=== PATIENT | female | born 1945 | race Caucasian/White ===

== ENCOUNTER 2018-05-14 23:08 | Inpatient (IN) | payer MEDICARE, OTHER ==
[~2018-05-14] VITALS: Ht 167.6 cm; Wt 67.0 kg
[2018-05-14] MEDS ORDERED: RAPID SEQUENCE KIT [RSI] 1 EACH KIT ONE (23:18)
[2018-05-14] MEDS ORDERED: VECURONIUM BROMIDE 10 MG/VIAL ONE (23:18)
[2018-05-14] MEDS ORDERED: SUCCINYLCHOLINE CHLORIDE 20 MG/ML 10 ML VIAL ONE (23:18)
[2018-05-14] MEDS ORDERED: ETOMIDATE 2 MG/ML 10 ML VIAL ONE (23:22)
[2018-05-14 23:23] LABS: GLUCOSE,POINT OF CARE 241 MG/DL (70-110)
[2018-05-14] MEDS ORDERED: PROPOFOL 1000 MG/ISO-OSM 100 ML IV ONE (23:23)
[2018-05-14 23:28] LABS: BASOPHILS % (AUTO) 1.5 % (0.0-2.0); EOSINOPHILS % (AUTO) 1.2 % (1.0-6.0); HEMATOCRIT 34.8 % (36-46); HEMOGLOBIN 11.1 g/dL (12.0-16.0); LYMPHOCYTES # (AUTO) 3.5 K/uL (1.0-4.8); LYMPHOCYTES % (AUTO) 21.2 % (22.0-44.0); MEAN CORPUSCULAR HEMOGLOBIN 28.9 pg (26.0-34.0); MEAN CORPUSCULAR HGB CONC 31.9 G/dL (31.0-37.0); MEAN CORPUSCULAR VOLUME 91 fL (80-100); MONOCYTES # (AUTO) 1.7 K/uL (0.1-1.0); NEUTROPHILS # (AUTO) 11.1 K/uL (1.8-7.7); NEUTROPHILS % (AUTO) 66.1 % (40.0-70.0); PLATELET COUNT (AUTO) 200 K/uL (150-450); RED BLOOD CELL COUNT(AUTO) 3.83 MIL/uL (4.00-5.20); RED CELL DISTRIBUTION WIDTH 14.9 % (11.5-14.5)
[2018-05-14] MEDS ORDERED: ALBUTEROL SULFATE 2.5 MG/0.5 ML NEB SOLUTION NEB ONE (23:30)
[2018-05-14] MEDS ORDERED: VECURONIUM BROMIDE 10 MG/VIAL IVP ONE (23:30)
[2018-05-14] MEDS ORDERED: FUROSEMIDE 40 MG/4 ML VIAL IVP ONE (23:30)
[2018-05-14] MEDS ORDERED: ETOMIDATE 2 MG/ML 10 ML VIAL IVP ONE (23:30)
[2018-05-14] MEDS ORDERED: CefTRIAXone 1 GM/DEXTROSE 50 ML IV ONE (23:30)
[2018-05-14] MEDS ORDERED: SUCCINYLCHOLINE CHLORIDE 20 MG/ML 10 ML VIAL IVP ONE (23:30)
[2018-05-14] MEDS ORDERED: MethylPREDNISolone SOD SUCC 125 MG/2 ML VIAL IVP ONE (23:30)
[2018-05-14] MEDS ORDERED: IPRATROPIUM BROMIDE 0.5 MG/2.5 ML NEB SOLUTION NEB ONE (23:30)
[2018-05-14] MEDS ORDERED: PROPOFOL 1000 MG/ISO-OSM 100 ML IV PRN (23:30)
[2018-05-14] MEDS ORDERED: PIPERACILLIN SODIUM/TAZOBACTAM 4.5 GM in DEXTROSE 5%-WATER 100 ML IV ONE (23:45)
[2018-05-14] MEDS ORDERED: ONDANSETRON HCL 4 MG/2 ML VIAL IVP PRN (23:45)
[2018-05-14] MEDS ORDERED: ACETAMINOPHEN 325 MG TABLET PO PRN (23:45)
[2018-05-14] MEDS ORDERED: 0.9% SODIUM CHLORIDE 10 ML SYRINGE IVP PRN (23:45)
[2018-05-14 23:46] LABS: ANION GAP 10 mmol/L (8-16); CALCIUM, TOTAL 9.1 mg/dL (8.8-10.5); CARBON DIOXIDE 25 mmol/L (22-29); CHLORIDE 103 mmol/L (98-107); CREATININE 1.39 mg/dL (0.60-1.30); GLOMERULAR FILTR. RATE CALC 37 mL/min (>60); GLUCOSE,RANDOM 251 mg/dL (70-110); INR 1.1 (0.9-1.1); POTASSIUM 4.7 mmol/L (3.5-5.1); PROTHROMBIN TIME 11.1 SEC (9.4-11.6); SODIUM SERUM 138 mmol/L (136-145); UREA NITROGEN, BLOOD 9 mg/dL (7-18)
[2018-05-14 23:50] LABS: B-TYPE NATRIURETIC PEPTIDE > 5000 pg/mL (0-100)
[2018-05-14 23:57] LABS: ALANINE AMINOTRANSFERASE 55 U/L (12-78); ALBUMIN 2.7 g/dL (3.4-5.0); ALKALINE PHOSPHATASE 117 U/L (46-116); ASPARTATE AMINOTRANSFERASE 37 U/L (15-37); BILIRUBIN,TOTAL 0.4 mg/dL (0.1-1.0); CREATINE KINASE, TOTAL ONLY 29 U/L (26-192); TOTAL PROTEIN, SERUM 7.1 g/dL (6.4-8.2)
[2018-05-15] VITALS (10 sets, daily range): BP systolic 111–147; BP diastolic 46–87
[2018-05-15] MEDS ORDERED: MULT-248 PO (00:10)
[2018-05-15] MEDS ORDERED: LEVO50 PO (00:10)
[2018-05-15] MEDS ORDERED: [UNRECOGNIZED DRUG - OTHER] PO (00:10)
[2018-05-15] MEDS ORDERED: BUSP15 PO (00:10)
[2018-05-15] MEDS ORDERED: LEVA0.634 NEB (00:10)
[2018-05-15] MEDS ORDERED: IVAB5TAB PO (00:10)
[2018-05-15] MEDS ORDERED: ROFL500T PO (00:10)
[2018-05-15] MEDS ORDERED: INSNOV SQ (00:10)
[2018-05-15] MEDS ORDERED: THIA100T67 PO (00:10)
[2018-05-15] MEDS ORDERED: ENOX40DI9 SQ (00:10)
[2018-05-15] MEDS ORDERED: METO50 PO (00:10)
[2018-05-15] MEDS ORDERED: IPRNEB IH (00:10)
[2018-05-15] MEDS ORDERED: ZOLP10TA7 PO (00:10)
[2018-05-15] MEDS ORDERED: IPRA4AER IH (00:10)
[2018-05-15] MEDS ORDERED: MIRT30 PO (00:10)
[2018-05-15] MEDS ORDERED: DIGO-44 PO (00:10)
[2018-05-15] MEDS ORDERED: ATOR40TA28 PO (00:10)
[2018-05-15] MEDS ORDERED: ADV250 IH (00:10)
[2018-05-15] MEDS ORDERED: ALPR0.255 PO (00:10)
[2018-05-15] MEDS ORDERED: ALEN70TA10 PO (00:10)
[2018-05-15] MEDS ORDERED: SPIR25 PO (00:10)
[2018-05-15] MEDS ORDERED: LISI-660 PO (00:10)
[2018-05-15] MEDS ORDERED: INSU100V12 SQ (00:10)
[2018-05-15] MEDS ORDERED: BUME1TAB17 PO (00:10)
[2018-05-15] MEDS ORDERED: PANT40TA25 PO (00:10)
[2018-05-15] MEDS ORDERED: ASPI81 PO (00:10)
[2018-05-15] MEDS ORDERED: FAMO20 PO (00:10)
[2018-05-15 00:14] LABS: ABG BASE EXCESS 1.3 mmol/L (-2.0-3.0); ABG CARBOXYHEMOGLOBIN 0.3 % (0.0-1.5); ABG HCO3 24.8 mmol/L (22.0-26.0); ABG OXYGEN CONTENT 15.6 mL/dL (15.0-23.0); ABG OXYGEN SATURATION 94.8 % (95.0-98.0); ABG OXYHEMOGLOBIN 94.5 % (94.0-100.0); ABG PCO2 59 mmHg (35-45); ABG PH 7.291 (7.35-7.450); ABG TOTAL HEMOGLOBIN 11.7 G/dL (12.0-18.0); O2 DEVICE,BLOOD GAS VENTILATOR (ROOM AIR); PEEP,BG 5 cm H2O; PO2, ARTERIAL BG 93.9 mmHg (75.0-83.0); SITE, BLOOD GAS LFT RADIAL; SOURCE, BLOOD GAS ARTERIAL; VT, ABG 500 ml
[2018-05-15] MEDS ORDERED: ACETAMINOPHEN 325 MG TABLET PO PRN (00:15)
[2018-05-15] MEDS ORDERED: MAGNESIUM SULFATE 2 GM/WATER 50 ML IV PRN (00:15)
[2018-05-15] MEDS ORDERED: ALBUTEROL SULFATE 2.5 MG/0.5 ML NEB SOLUTION NEB PRN (00:15)
[2018-05-15] MEDS ORDERED: POTASSIUM CHL 10 MEQ/WATER 50 ML IV PRN (00:15)
[2018-05-15] MEDS ORDERED: MAGNESIUM OXIDE 400 MG TABLET PO PRN (00:15)
[2018-05-15] MEDS ORDERED: ONDANSETRON HCL 4 MG/2 ML VIAL IVP PRN (00:15)
[2018-05-15] MEDS ORDERED: IPRATROPIUM BROMIDE 0.5 MG/2.5 ML NEB SOLUTION NEB PRN (00:15)
[2018-05-15] MEDS ORDERED: POTASSIUM CHLORIDE 20 MEQ ER TABLET PO PRN (00:15)
[2018-05-15] MEDS ORDERED: BISACODYL 10 MG RECTAL RECTAL SUPPOSITORY PR PRN (00:15)
[2018-05-15] MEDS ORDERED: MAGNESIUM SULFATE 4 GM/WATER 100 ML IV PRN (00:15)
[2018-05-15] MEDS ORDERED: MAGNESIUM HYDROXIDE SUSPENSION 30 ML UDCUP PO PRN (00:15)
[2018-05-15] MEDS ORDERED: OxyCODONE HCL/ACETAMINOPHEN 5-325 MG TABLET PO PRN (00:15)
[2018-05-15 00:20] LABS: LACTIC ACID 3.2 mmol/L (0.4-2.0)
[2018-05-15] MEDS ORDERED: SODIUM CHLORIDE 0.9% 1,200 ML IV ONE (00:30)
[2018-05-15] MEDS ORDERED: SODIUM CHLORIDE 0.9% 250 ML IV ONE (01:24)
[2018-05-15 05:02] LABS: BASOPHILS % (AUTO) 0.1 % (0.0-2.0); EOSINOPHILS % (AUTO) 0.1 % (1.0-6.0); HEMATOCRIT 32.9 % (36-46); HEMOGLOBIN 10.5 g/dL (12.0-16.0); LYMPHOCYTES # (AUTO) 0.3 K/uL (1.0-4.8); LYMPHOCYTES % (AUTO) 1.7 % (22.0-44.0); MEAN CORPUSCULAR HEMOGLOBIN 29.2 pg (26.0-34.0); MEAN CORPUSCULAR VOLUME 91 fL (80-100); MONOCYTES # (AUTO) 0.7 K/uL (0.1-1.0); MONOCYTES % (AUTO) 4.3 % (2.0-9.0); NEUTROPHILS # (AUTO) 14.2 K/uL (1.8-7.7); PLATELET COUNT (AUTO) 149 K/uL (150-450); RED BLOOD CELL COUNT(AUTO) 3.61 MIL/uL (4.00-5.20); RED CELL DISTRIBUTION WIDTH 14.7 % (11.5-14.5)
[2018-05-15 05:04] LABS: NEUTROPHILS % (AUTO) 93.8 % (40.0-70.0)
[2018-05-15 05:14] LABS: HEMOGLOBIN A1C 7.2 % (4.5-6.2)
[2018-05-15 05:16] LABS: ALBUMIN 2.6 g/dL (3.4-5.0); BILIRUBIN,TOTAL 0.5 mg/dL (0.1-1.0); CALCIUM, TOTAL 8.7 mg/dL (8.8-10.5); CREATININE 1.18 mg/dL (0.60-1.30); MAGNESIUM 1.8 mg/dL (1.80-2.40); PHOSPHORUS 4.4 mg/dL (2.5-4.9); POTASSIUM 3.9 mmol/L (3.5-5.1); TOTAL PROTEIN, SERUM 6.6 g/dL (6.4-8.2)
[2018-05-15] MEDS: LEVOTHYROXINE SODIUM 50 MCG TABLET PO SCH (05:48)
[2018-05-15] MEDS: PIPERACILLIN SODIUM/TAZOBACTAM 4.5 GM in DEXTROSE 5%-WATER 100 ML IV SCH ×4 (06:09→23:44)
[2018-05-15] MEDS: METOPROLOL TARTRATE 50 MG TABLET PO SCH ×4 (09:00→21:00)
[2018-05-15] MEDS: SPIRONOLACTONE 25 MG TABLET PO SCH ×2 (09:00→09:21)
[2018-05-15] MEDS: LISINOPRIL 5 MG TABLET PO SCH ×2 (09:00→09:21)
[2018-05-15] MEDS: DIGOXIN 125 MCG TABLET PO SCH ×2 (09:00→09:21)
[2018-05-15] MEDS: PANTOPRAZOLE SODIUM 40 MG/VIAL IVP SCH (09:20)
[2018-05-15] MEDS: ROFLUMILAST 500 MCG TABLET PO SCH (09:21)
[2018-05-15] MEDS: BusPIRone HCL 15 MG TABLET PO SCH ×2 (09:21→21:05)
[2018-05-15] MEDS: HEPARIN SODIUM,PORCINE 5,000 UNITS/ML VIAL SQ SCH ×3 (09:21→23:44)
[2018-05-15] MEDS: FUROSEMIDE 40 MG/4 ML VIAL IVP SCH (09:33)
[2018-05-15] MEDS: PROPOFOL 1000 MG/ISO-OSM 100 ML IV PRN ×3 (09:41→23:44)
[2018-05-15 10:27] LABS: ABG BASE EXCESS 5.1 mmol/L (-2.0-3.0); ABG CARBOXYHEMOGLOBIN 0.3 % (0.0-1.5); ABG HCO3 28.6 mmol/L (22.0-26.0); ABG METHEMOGLOBIN 0.3 % (0.0-1.5); ABG OXYGEN CONTENT 16.3 mL/dL (15.0-23.0); ABG OXYGEN SATURATION 98.4 % (95.0-98.0); ABG OXYHEMOGLOBIN 97.8 % (94.0-100.0); ABG PCO2 44 mmHg (35-45); ABG PH 7.444 (7.35-7.450); ABG TOTAL HEMOGLOBIN 11.7 G/dL (12.0-18.0); PO2, ARTERIAL BG 131.2 mmHg (75.0-83.0); SOURCE, BLOOD GAS ARTERIAL; TEMPERATURE, FAHRENHEIT, BG 98.9 FAHREN (96.0-98.6)
[2018-05-15 10:33] LABS: O2 DEVICE,BLOOD GAS VENTILATOR (ROOM AIR); PEEP,BG 5 cm H2O; SITE, BLOOD GAS LFT RADIAL; SPONTANEOUS VT, BG 467 ml; VT, ABG 500 ml
[2018-05-15] MEDS ORDERED: ETOMIDATE 2 MG/ML 10 ML VIAL IV ONE (16:44)
[2018-05-15] MEDS ORDERED: SUCCINYLCHOLINE CHLORIDE 20 MG/ML 10 ML VIAL IM ONE (16:44)
[2018-05-15] MEDS ORDERED: INSULIN DETEMIR 100 UNITS/ML SQ SCH (21:00)
[2018-05-15] MEDS: MIRTAZAPINE 30 MG TABLET PO SCH (21:05)
[2018-05-15 21:16] LABS: GLUCOSE,POINT OF CARE 163 MG/DL (70-110)
[2018-05-15] MEDS: MORPHINE SULFATE 2 MG/ML SYRINGE IVP PRN (22:51)
[2018-05-16] VITALS (10 sets, daily range): BP systolic 91–141; BP diastolic 35–79
[2018-05-16] MEDS: MORPHINE SULFATE 2 MG/ML SYRINGE IVP PRN ×3 (04:51→20:24)
[2018-05-16 05:04] LABS: GLUCOSE,POINT OF CARE 197 MG/DL (70-110)
[2018-05-16 05:12] LABS: BASOPHILS % (AUTO) 0.3 % (0.0-2.0); EOSINOPHILS % (AUTO) 0.2 % (1.0-6.0); LYMPHOCYTES # (AUTO) 0.8 K/uL (1.0-4.8); LYMPHOCYTES % (AUTO) 10.4 % (22.0-44.0); MEAN CORPUSCULAR HGB CONC 32.2 G/dL (31.0-37.0); MEAN CORPUSCULAR VOLUME 90 fL (80-100); MONOCYTES # (AUTO) 0.8 K/uL (0.1-1.0); MONOCYTES % (AUTO) 10.4 % (2.0-9.0); NEUTROPHILS # (AUTO) 5.8 K/uL (1.8-7.7); NEUTROPHILS % (AUTO) 78.7 % (40.0-70.0); PLATELET COUNT (AUTO) 154 K/uL (150-450); RED BLOOD CELL COUNT(AUTO) 3.45 MIL/uL (4.00-5.20); RED CELL DISTRIBUTION WIDTH 14.9 % (11.5-14.5)
[2018-05-16] MEDS ORDERED: SODIUM CHLORIDE 0.9% 250 ML IV ONE (05:15)
[2018-05-16] MEDS: PIPERACILLIN SODIUM/TAZOBACTAM 4.5 GM in DEXTROSE 5%-WATER 100 ML IV SCH (05:15)
[2018-05-16] MEDS: LEVOTHYROXINE SODIUM 50 MCG TABLET PO SCH (05:15)
[2018-05-16 05:17] LABS: ALBUMIN 2.2 g/dL (3.4-5.0); BILIRUBIN,TOTAL 0.4 mg/dL (0.1-1.0); CALCIUM, TOTAL 8.4 mg/dL (8.8-10.5); CREATININE 1.28 mg/dL (0.60-1.30); MAGNESIUM 1.7 mg/dL (1.80-2.40); PHOSPHORUS 5.1 mg/dL (2.5-4.9); POTASSIUM 3.7 mmol/L (3.5-5.1)
[2018-05-16 05:18] LABS: HEMOGLOBIN A1C 7.1 % (4.5-6.2)
[2018-05-16] MEDS: PROPOFOL 1000 MG/ISO-OSM 100 ML IV PRN ×2 (07:31→13:34)
[2018-05-16] MEDS: METOPROLOL TARTRATE 50 MG TABLET PO SCH ×3 (08:07→20:24)
[2018-05-16] MEDS: LISINOPRIL 5 MG TABLET PO SCH (08:07)
[2018-05-16] MEDS: BusPIRone HCL 15 MG TABLET PO SCH ×2 (08:18→20:24)
[2018-05-16] MEDS: DIGOXIN 125 MCG TABLET PO SCH (08:18)
[2018-05-16] MEDS: HEPARIN SODIUM,PORCINE 5,000 UNITS/ML VIAL SQ SCH ×3 (08:18→23:26)
[2018-05-16] MEDS: SPIRONOLACTONE 25 MG TABLET PO SCH (08:18)
[2018-05-16] MEDS: PANTOPRAZOLE SODIUM 40 MG/VIAL IVP SCH (08:18)
[2018-05-16] MEDS: ROFLUMILAST 500 MCG TABLET PO SCH (08:19)
[2018-05-16] MEDS: FUROSEMIDE 40 MG/4 ML VIAL IVP SCH (08:19)
[2018-05-16] MEDS: PIPERACILLIN/TAZO 3.375 GM/D5W 50 ML IV SCH ×3 (11:36→23:25)
[2018-05-16] MEDS ORDERED: DEXTROSE 50%-WATER 25 GM/50 ML SYRINGE IVP PRN (11:45)
[2018-05-16] MEDS: INSULIN REGULAR, HUMAN 100 UNITS/ML SQ PRN (11:58)
[2018-05-16] MEDS: HALOPERIDOL LACTATE 5 MG/ML VIAL IVP PRN (15:08)
[2018-05-16 17:14] LABS: ABG A-A DIFF O2 131.5 mmHg (10-20.0); ABG BASE EXCESS 7.4 mmol/L (-2.0-3.0); ABG CARBOXYHEMOGLOBIN 0.3 % (0.0-1.5); ABG HCO3 30.5 mmol/L (22.0-26.0); ABG METHEMOGLOBIN 0.3 % (0.0-1.5); ABG OXYGEN CONTENT 16.4 mL/dL (15.0-23.0); ABG OXYGEN SATURATION 97.6 % (95.0-98.0); ABG PCO2 44 mmHg (35-45); ABG PH 7.467 (7.35-7.450); ABG TOTAL HEMOGLOBIN 11.9 G/dL (12.0-18.0); SOURCE, BLOOD GAS ARTERIAL; TEMPERATURE, FAHRENHEIT, BG 98.6 FAHREN (96.0-98.6)
[2018-05-16 17:15] LABS: O2 DEVICE,BLOOD GAS VENTILATOR (ROOM AIR); PEEP,BG 0 cm H2O; SITE, BLOOD GAS RT RADIAL; VENT MODE, BG SPONTANEOUS (ROOM AIR)
[2018-05-16 17:16] LABS: CPAP, BG 0 cm H2O; PRESSURE SUPPORT, BG 8 cm H2O; SPONTANEOUS VT, BG 428 ml
[2018-05-16] MEDS: MethylPREDNISolone SOD SUCC 125 MG/2 ML VIAL IVP SCH ×2 (17:41→23:26)
[2018-05-16] MEDS: IPRATROPIUM BROMIDE 0.5 MG/2.5 ML NEB SOLUTION NEB SCH ×2 (19:36→22:31)
[2018-05-16] MEDS: ALBUTEROL SULFATE 2.5 MG/0.5 ML NEB SOLUTION NEB SCH ×2 (19:36→22:31)
[2018-05-16] MEDS: MIRTAZAPINE 30 MG TABLET PO SCH (20:24)
[2018-05-16 20:48] LABS: GLUCOSE,POINT OF CARE 137 MG/DL (70-110)
[2018-05-16 20:48] LABS: GLUCOSE,POINT OF CARE 205 MG/DL (70-110)
[2018-05-16] MEDS: ZOLPIDEM TARTRATE 5 MG TABLET PO PRN (21:27)
[2018-05-16 21:44] LABS: ABG A-A DIFF O2 77.3 mmHg (10-20.0); ABG BASE EXCESS 6.5 mmol/L (-2.0-3.0); ABG CARBOXYHEMOGLOBIN 0.3 % (0.0-1.5); ABG HCO3 29.5 mmol/L (22.0-26.0); ABG METHEMOGLOBIN 0.3 % (0.0-1.5); ABG OXYGEN CONTENT 16.1 mL/dL (15.0-23.0); ABG OXYGEN SATURATION 95.6 % (95.0-98.0); ABG PCO2 47 mmHg (35-45); ABG PH 7.434 (7.35-7.450); O2 DEVICE,BLOOD GAS BIPAP (ROOM AIR); PO2, ARTERIAL BG 81.5 mmHg (75.0-83.0); SITE, BLOOD GAS LFT RADIAL; SOURCE, BLOOD GAS ARTERIAL; TEMPERATURE, FAHRENHEIT, BG 98.6 FAHREN (96.0-98.6)
[2018-05-17] VITALS: BP 113/32
[2018-05-17] MEDS: INSULIN REGULAR, HUMAN 100 UNITS/ML SQ PRN ×4 (00:21→17:42)
[2018-05-17 02:34] LABS: GLUCOSE,POINT OF CARE 186 MG/DL (70-110)
[2018-05-17] MEDS: IPRATROPIUM BROMIDE 0.5 MG/2.5 ML NEB SOLUTION NEB SCH ×6 (03:07→22:55)
[2018-05-17] MEDS: ALBUTEROL SULFATE 2.5 MG/0.5 ML NEB SOLUTION NEB SCH ×6 (03:07→22:55)
[2018-05-17 04:00] VITALS: BP 133/57
[2018-05-17 05:17] LABS: CALCIUM, TOTAL 8.7 mg/dL (8.8-10.5); CREATININE 1.21 mg/dL (0.60-1.30); MAGNESIUM 1.8 mg/dL (1.80-2.40); POTASSIUM 3.7 mmol/L (3.5-5.1)
[2018-05-17] MEDS: MethylPREDNISolone SOD SUCC 125 MG/2 ML VIAL IVP SCH ×3 (05:31→17:55)
[2018-05-17] MEDS: PIPERACILLIN/TAZO 3.375 GM/D5W 50 ML IV SCH ×3 (05:31→17:55)
[2018-05-17] MEDS: LEVOTHYROXINE SODIUM 50 MCG TABLET PO SCH (05:31)
[2018-05-17 06:22] LABS: INFLUENZA TYPE A NEGATIVE FOR TYPE A (NEGATIVE); INFLUENZA TYPE B NEGATIVE FOR TYPE B (NEGATIVE)
[2018-05-17 06:30] LABS: APPEARANCE,URINE CLEAR (CLEAR); BILIRUBIN,URINE NEGATIVE (NEGATIVE); GLUCOSE, URINE (UA) NEGATIVE (NEGATIVE); KETONES,URINE TRACE mg/dL (NEGATIVE); LEUKOCYTE ESTERASE ,URINE NEGATIVE (NEGATIVE); NITRATE,URINE NEGATIVE (NEGATIVE); OCCULT BLOOD,URINE NEGATIVE (NEGATIVE); PH,URINE 5.5 (5.0-8.0); PROTEIN,URINE SEE CONFIRM (NEGATIVE); UROBILINOGEN,URINE 0.2 mg/dL (<=1.0)
[2018-05-17 06:53] LABS: SULFOSALICYLIC ACID,URINE 2+ (Negative)
[2018-05-17 06:54] LABS: BACTERIA,URINE None Seen /HPF (None Seen); RBC,URINE 0-2 /HPF (0-2); SQUAMOUS EPITHELIAL CELL,UR Few /LPF (None Seen); WBC,URINE 0-2 /HPF (0-5); YEAST,URINE Few /HPF (None Seen)
[2018-05-17 08:00] VITALS: BP 136/71
[2018-05-17] MEDS: HALOPERIDOL LACTATE 5 MG/ML VIAL IVP PRN ×2 (08:28→15:11)
[2018-05-17] MEDS: LISINOPRIL 5 MG TABLET PO SCH (09:00)
[2018-05-17] MEDS: BusPIRone HCL 15 MG TABLET PO SCH ×2 (09:13→20:33)
[2018-05-17] MEDS: HEPARIN SODIUM,PORCINE 5,000 UNITS/ML VIAL SQ SCH ×2 (09:13→16:10)
[2018-05-17] MEDS: ROFLUMILAST 500 MCG TABLET PO SCH (09:13)
[2018-05-17] MEDS: PANTOPRAZOLE SODIUM 40 MG/VIAL IVP SCH (09:13)
[2018-05-17] MEDS: FUROSEMIDE 40 MG/4 ML VIAL IVP SCH (09:13)
[2018-05-17] MEDS: SPIRONOLACTONE 25 MG TABLET PO SCH (09:14)
[2018-05-17] MEDS: DIGOXIN 125 MCG TABLET PO SCH (09:16)
[2018-05-17] MEDS: METOPROLOL TARTRATE 50 MG TABLET PO SCH ×3 (09:16→20:33)
[2018-05-17 12:00] VITALS: BP 139/68
[2018-05-17 15:09] LABS: GLUCOSE,POINT OF CARE 207 MG/DL (70-110)
[2018-05-17 16:00] VITALS: BP 140/59
[2018-05-17] MEDS: MORPHINE SULFATE 2 MG/ML SYRINGE IVP PRN (18:32)
[2018-05-17 20:00] VITALS: BP 137/71
[2018-05-17 20:13] LABS: GLUCOSE,POINT OF CARE 210 MG/DL (70-110)
[2018-05-17] MEDS: MIRTAZAPINE 30 MG TABLET PO SCH (20:33)
[2018-05-17] MEDS: ZOLPIDEM TARTRATE 5 MG TABLET PO PRN (20:33)
[2018-05-18] VITALS: BP 99/53
[2018-05-18] MEDS: PIPERACILLIN/TAZO 3.375 GM/D5W 50 ML IV SCH ×3 (00:33→11:21)
[2018-05-18] MEDS: HEPARIN SODIUM,PORCINE 5,000 UNITS/ML VIAL SQ SCH ×2 (00:34→08:09)
[2018-05-18] MEDS: MethylPREDNISolone SOD SUCC 125 MG/2 ML VIAL IVP SCH ×3 (00:34→11:21)
[2018-05-18] MEDS: INSULIN REGULAR, HUMAN 100 UNITS/ML SQ PRN ×3 (00:43→12:55)
[2018-05-18 00:54] LABS: GLUCOSE,POINT OF CARE 194 MG/DL (70-110)
[2018-05-18] MEDS: IPRATROPIUM BROMIDE 0.5 MG/2.5 ML NEB SOLUTION NEB SCH ×3 (02:36→12:10)
[2018-05-18] MEDS: ALBUTEROL SULFATE 2.5 MG/0.5 ML NEB SOLUTION NEB SCH ×3 (02:36→12:10)
[2018-05-18] MEDS: HALOPERIDOL LACTATE 5 MG/ML VIAL IVP PRN ×2 (04:16→12:59)
[2018-05-18] MEDS ORDERED: SODIUM CHLORIDE 0.9% 250 ML IV ONE (05:40)
[2018-05-18] MEDS: LEVOTHYROXINE SODIUM 50 MCG TABLET PO SCH (05:49)
[2018-05-18 08:05] VITALS: BP 124/65
[2018-05-18] MEDS: FUROSEMIDE 40 MG/4 ML VIAL IVP SCH (08:09)
[2018-05-18] MEDS: PANTOPRAZOLE SODIUM 40 MG/VIAL IVP SCH (08:09)
[2018-05-18] MEDS: BusPIRone HCL 15 MG TABLET PO SCH (08:09)
[2018-05-18] MEDS: DIGOXIN 125 MCG TABLET PO SCH (08:10)
[2018-05-18] MEDS: ROFLUMILAST 500 MCG TABLET PO SCH (08:10)
[2018-05-18] MEDS: MORPHINE SULFATE 2 MG/ML SYRINGE IVP PRN (08:11)
[2018-05-18] MEDS: METOPROLOL TARTRATE 50 MG TABLET PO SCH (09:47)
[2018-05-18] MEDS: SPIRONOLACTONE 25 MG TABLET PO SCH (09:47)
[2018-05-18 10:28] VITALS: BP 124/63
[2018-05-18] MEDS: LISINOPRIL 5 MG TABLET PO SCH (10:28)
[2018-05-18] MEDS ORDERED: A20IH1 IH (13:36)
[2018-05-18] MEDS ORDERED: PRED20 PO (13:37)
[2018-05-18] MEDS ORDERED: PRED5 PO (13:38)
[2018-05-18] MEDS ORDERED: PRED10 PO (13:38)
[2018-05-18] MEDS ORDERED: LEVO250 PO (13:39)
[2018-05-18] MEDS ORDERED: INSU100V3 SQ (13:44)
[2018-05-18 21:24] LABS: GLUCOMETER DEV NAME(LOC) 5S.1; GLUCOSE,POINT OF CARE 230 MG/DL (70-110)
[2018-05-18 21:24] LABS: GLUCOMETER DEV NAME(LOC) 5S.1; GLUCOSE,POINT OF CARE 224 MG/DL (70-110)
== END 2018-05-18 16:00 | DRG 871 ==
LOC: EMS 23:13 → ICU 23:30 → ICUN 05-15 20:35 → 5S 05-18 03:45
PROVIDERS: ADMIT Internal Medicine; ATTEND Internal Medicine
PROC: 5A09357 Assistance with Respiratory Ventilation, Less than 24 Consecutive Hours, Continuous Positive Airway Pressure (ICD-10-PCS; 2018-05-14)
PROC: 5A1945Z Respiratory Ventilation, 24-96 Consecutive Hours (ICD-10-PCS; principal; 2018-05-15)
PROC: 0BH17EZ Insertion of Endotracheal Airway into Trachea, Via Natural or Artificial Opening (ICD-10-PCS; 2018-05-15)
PROC: 05HY33Z Insertion of Infusion Device into Upper Vein, Percutaneous Approach (ICD-10-PCS; 2018-05-16)
PROC: B54MZZA Ultrasonography of Right Upper Extremity Veins, Guidance (ICD-10-PCS; 2018-05-16)
PROC: 5A09357 Assistance with Respiratory Ventilation, Less than 24 Consecutive Hours, Continuous Positive Airway Pressure (ICD-10-PCS; 2018-05-16)
PROC: 5A09357 Assistance with Respiratory Ventilation, Less than 24 Consecutive Hours, Continuous Positive Airway Pressure (ICD-10-PCS; 2018-05-17)
DX: A41.9 Sepsis, unspecified organism (principal); J18.9 Pneumonia, unspecified organism; J96.20 Acute and chronic respiratory failure, unspecified whether with hypoxia or hypercapnia; N17.9 Acute kidney failure, unspecified; J44.0 Chronic obstructive pulmonary disease with (acute) lower respiratory infection; J44.1 Chronic obstructive pulmonary disease with (acute) exacerbation; E11.65 Type 2 diabetes mellitus with hyperglycemia; I11.0 Hypertensive heart disease with heart failure; E03.9 Hypothyroidism, unspecified; E78.00 Pure hypercholesterolemia, unspecified; E78.5 Hyperlipidemia, unspecified; I50.9 Heart failure, unspecified; K21.9 Gastro-esophageal reflux disease without esophagitis
CPT/HCPCS: 31500; 36245; 36569; 36600; 51702; 71250; 76937; 82805; 83036; 83605; 83735; 84100; 87070; 87081; 87205; 87804; 92526; 92610; 93005; 94002; 94003; 94640; 94660; 96374; 96375; 99291; C9113; G0378; J0330; J1630; J1644; J1940; J2270; J2543; J2704; J2930; J3490; J7030; J7050; J7060